=== PATIENT | female | born 1940 | race Caucasian/White ===

== ENCOUNTER → 2017-10-29 | Outpatient (CLI) | payer OTHER ==
[~2017-10-29] MED LIST: Amiodarone HCl200 MG PO; CALCIUM 500 +1 EAC2 PO; Coumadin3 MG PO; Estriol0.1 GM; FEXPSEER PO; FLONASE ALLERG9.9 ML NS; LISI5 PO; LMX 515 GM TP; MULVITMIND PO; OXYC5 PO; POTCHL20ER; SERT100 PO; Synthroid/Le0.075 MG PO
[2017-10-29 14:22] LABS: Candida species (DNA Probe) Negative (NEGATIVE); G. vaginalis (DNA Probe) Negative (NEGATIVE); T. vaginalis (DNA Probe) Negative (NEGATIVE)
== END ==
LOC: LAB SHORT 10:11 → LAB 10:11
PROVIDERS: Nurse Practitioner Obstetrics & Gynecology
DX: N76.0 Acute vaginitis (principal)
CPT/HCPCS: 87480; 87510; 87660

== ENCOUNTER 2018-03-18 08:46 | Day surgery (SDC) | payer OTHER ==
[~2018-03-18] VITALS: Ht 157.5 cm; Wt 58.5 kg
[~2018-03-18 08:46] MED LIST changes: +ASCO500 PO; +Aspirin EC81 MG PO; +DHEA 10 MG TAB1 EACH PO; +ESTRIOL VAG; +Vitamin C500 M3 PO
== END 2018-03-18 11:04 | disposition home or self-care (01) ==
LOC: ORSCSDS 08:46
PROVIDERS: Internal Medicine Gastroenterology
PROC: 0DJD8ZZ Inspection of Lower Intestinal Tract, Via Natural or Artificial Opening Endoscopic (ICD-10-PCS; principal; 2018-03-18 10:15)
DX: Z12.11 Encounter for screening for malignant neoplasm of colon (principal); K64.8 Other hemorrhoids; K57.30 Diverticulosis of large intestine without perforation or abscess without bleeding; I10 Essential (primary) hypertension; E78.5 Hyperlipidemia, unspecified; I34.1 Nonrheumatic mitral (valve) prolapse; Z79.899 Other long term (current) drug therapy; I48.91 Unspecified atrial fibrillation; Z79.82 Long term (current) use of aspirin
CPT/HCPCS: J0330; J1980; J2405; J7120

== ENCOUNTER → 2018-12-02 | Outpatient (CLI) | payer OTHER ==
[2018-12-02 15:00] LABS: Candida species (DNA Probe) Negative (NEGATIVE); G. vaginalis (DNA Probe) Negative (NEGATIVE); T. vaginalis (DNA Probe) Negative (NEGATIVE)
== END | disposition home or self-care (01) ==
LOC: LAB SHORT 09:49 → LAB 09:49
PROVIDERS: Nurse Practitioner Obstetrics & Gynecology
DX: N76.0 Acute vaginitis (principal)
CPT/HCPCS: 87480; 87510; 87660

== ENCOUNTER 2019-02-19 05:26 | Day surgery (SDC) | payer OTHER ==
[~2019-02-19] VITALS: Ht 157.5 cm; Wt 59.5 kg
[~2019-02-19 05:26] MED LIST changes: +ASCORBIC ACID500 MG PO; +Calcium Ascorb500 MG PO; +Daily Multiple1 EACH PO; +Estradiol0.5 MG VAG; +LIVALO1 MG PO; +METO25ER PO; +POTA10T PO; +TORSE20 PO
[2019-02-19] MEDS ORDERED: HYDCHL12.5 PO (09:24)
--- NOTE | 2019-02-19 11:04 | NUR ---
02/19/19 1104 Aleksey Bruce LATE ENTRY-[id number] PATIENT ARRIVED TO SDU VIA RECLINER CHAIR. PATIENT VERY DROWSY. DENIES PAIN, N/V AT THIS TIME. PATIENT ABLE TO MOVE UE WITHOUT DIFFICULTY. VSS
== END 2019-02-19 11:11 | disposition home or self-care (01) ==
LOC: ORSCSDS 05:26
PROVIDERS: Anesthesiology
PROC: 3E0R33Z Introduction of Anti-inflammatory into Spinal Canal, Percutaneous Approach (ICD-10-PCS; principal; 2019-02-19 10:00)
DX: M50.122 Cervical disc disorder at C5-C6 level with radiculopathy (principal); I10 Essential (primary) hypertension; F32.9 Major depressive disorder, single episode, unspecified; E78.00 Pure hypercholesterolemia, unspecified; Z79.82 Long term (current) use of aspirin; Z79.899 Other long term (current) drug therapy
CPT/HCPCS: J1040; J2250; J3010

== ENCOUNTER → 2019-06-08 | Outpatient (CLI) | payer OTHER ==
[~2019-06-08] MED LIST changes: +HYDCHL12.5 PO
== END | disposition home or self-care (01) ==
LOC: LAB SHORT 14:48 → LAB 14:48
DX: N39.0 Urinary tract infection, site not specified (principal)
CPT/HCPCS: 87086

== ENCOUNTER → 2019-10-27 | Outpatient (CLI) | payer OTHER | END | disposition home or self-care (01) | LOC: LAB 13:27 → LAB SHORT 13:27 → LAB FUT 10-26 12:40 | DX: N39.0 Urinary tract infection, site not specified (principal) | CPT/HCPCS: 87086 ==

== ENCOUNTER → 2019-11-12 | Outpatient (CLI) | payer OTHER ==
[2019-11-13 10:58] LABS: Candida species (DNA Probe) Negative (NEGATIVE); G. vaginalis (DNA Probe) Negative (NEGATIVE); T. vaginalis (DNA Probe) Negative (NEGATIVE)
== END | disposition home or self-care (01) ==
LOC: LAB 09:30 → LAB SHORT 09:30
PROVIDERS: Internal Medicine
DX: N89.9 Noninflammatory disorder of vagina, unspecified (principal)
CPT/HCPCS: 87480; 87510; 87660

== ENCOUNTER 2020-02-21 06:02 | Day surgery (SDC) | payer OTHER ==
[~2020-02-21] VITALS: Ht 157.5 cm; Wt 59.0 kg
[~2020-02-21 06:02] MED LIST changes: +ATOR80 PO; +CLOP75 PO; -Calcium Ascorb500 MG PO; +Cardizem CD 12120 MG PO; -Daily Multiple1 EACH PO; +HYDCHL25 PO; +LEVSOD75 PO; +MULTI VITAMIN1 EACH PO; +SERT50 PO; -Synthroid/Le0.075 MG PO
--- NOTE | 2020-02-21 08:24 | NUR ---
PT VERBALIZED UNDERSTANDING OF WRITTEN AND VERBAL D/C INST. IV REMOVED. PT ABLE TO DRINK WATER /S DIFFICULTY.
== END 2020-02-21 14:00 | disposition home or self-care (01) ==
LOC: MHTC 06:02
DX: I63.9 Cerebral infarction, unspecified (principal); I25.10 Atherosclerotic heart disease of native coronary artery without angina pectoris; Z95.4 Presence of other heart-valve replacement; I10 Essential (primary) hypertension; E78.5 Hyperlipidemia, unspecified; E03.9 Hypothyroidism, unspecified; Z79.02 Long term (current) use of antithrombotics/antiplatelets; Z79.899 Other long term (current) drug therapy; Z88.2 Allergy status to sulfonamides
CPT/HCPCS: 93312; 93325; J2704; J7030

== ENCOUNTER → 2020-02-29 | Outpatient (CLI) | payer OTHER | END | disposition home or self-care (01) | LOC: LAB SHORT 16:51 → LAB UCHC 16:51 | DX: R31.9 Hematuria, unspecified (principal) | CPT/HCPCS: 87077; 87086; 87186 ==

== ENCOUNTER → 2021-02-23 | Outpatient (CLI) | payer OTHER ==
[2021-02-23 14:40] LABS: Hematocrit 43.7 % (33.0-51.0); Hemoglobin 14.3 g/dL (11.5-16.0); Mean Corpuscular HGB Conc 32.7 g/dL (31.5-36.5); Mean Corpuscular Volume 86 fL (80-100); Mean Platelet Volume 10.1 fL (9.1-12.4); Platelet Count 275 K/mm3 (150-400); RDW Coefficient Variation 13.1 % (11.7-14.2); RDW Standard Deviation 40.6 fL (35.1-46.3); Red Blood Cell Count 5.11 M/mm3 (3.80-5.20); White Blood Cell Count 4.68 K/mm3 (4.00-11.30)
[2021-02-23 14:59] LABS: Magnesium, Blood 2.5 mg/dL (1.6-2.4)
[2021-02-23 15:04] LABS: Alanine Aminotransfer (ALT/SGP 37 U/L (12-78); Albumin/Globulin Ratio 1.2 (0.8-1.8); Alk Phos 59 U/L (50-136); Anion Gap 4 mmol/L (6-16); Aspartate Aminotrans (AST/SGOT 24 U/L (12-37); Bilirubin, Total 0.2 mg/dL (0.1-1.0); Blood Urea Nitrogen 15 mg/dL (8-24); Bun/Creatinine Ratio 20.4 (12.0-20.0); CHOL/HDL RATIO 2.7; CO2, Blood 30 mmol/L (21-32); Calcium, Blood 8.7 mg/dL (8.5-10.1); Chloride, Blood 103 mmol/L (98-108); Cholesterol 196 mg/dL (50-200); Creatinine, Blood 0.74 mg/dL (0.40-1.00); Globulin, Blood 3.3 g/dL (2.2-4.0); Glomerular Filtration Rate >60 (60-); Glucose, Blood 100 mg/dL (70-99); HDL Cholesterol 73 mg/dL (>39); LDL/HDL RATIO 1.3; Low Density Lipoprotein Chol 97 mg/dL (0-110); Sodium, Blood 137 mmol/L (136-145); Total Protein, Blood 7.3 g/dL (6.4-8.2); Triglycerides 129 mg/dL (30-160); Very Low Density Lipoprot Chol 25 mg/dL (6-32)
== END | disposition home or self-care (01) ==
LOC: LAB 09:50 → LAB SHORT 09:50
PROVIDERS: Student in an Organized Health Care Education/Training Program
DX: E78.5 Hyperlipidemia, unspecified (principal); R42 Dizziness and giddiness; R25.2 Cramp and spasm
CPT/HCPCS: 80053; 80061; 83735; 85027

== ENCOUNTER → 2021-07-26 | Outpatient (CLI) | payer OTHER | LOC: LAB SHORT 15:45 | DX: R30.0 Dysuria (principal) | CPT/HCPCS: 87086 ==

== ENCOUNTER → 2022-07-25 | Outpatient (CLI) | payer OTHER | END | disposition home or self-care (01) | LOC: PLD 11:39 → LAB SHORT 11:39 → LAB 11:39 | DX: L57.0 Actinic keratosis (principal) | CPT/HCPCS: 88305 ==

== ENCOUNTER 2022-11-14 12:58 | Inpatient (IN) | payer OTHER ==
[~2022-11-14] VITALS: Ht 157.5 cm; Wt 60.3 kg
[2022-11-14 13:36] LABS: BASOPHILS ABSOLUTE AUTO 0.08 K/mm3 (0.00-0.23); BASOPHILS PERCENT AUTO 1 % (0-2); EOSINOPHILS ABSOLUTE AUTO 0.15 K/mm3 (0.00-0.68); EOSINOPHILS PERCENT AUTO 2 % (0-6); Hematocrit 36.1 % (33.0-51.0); Hemoglobin 12.1 g/dL (11.5-16.0); IMMATURE GRAN ABSOLUTE AUTO 0.06 K/mm3 (0.00-0.10); IMMATURE GRAN PERCENT AUTO 1 % (0-1); LYMPHOCYTES ABSOLUTE AUTO 1.19 K/mm3 (0.84-5.20); LYMPHOCYTES PERCENT AUTO 15 % (21-46); MONOCYTES ABSOLUTE AUTO 0.89 K/mm3 (0.16-1.47); MONOCYTES PERCENT AUTO 11 % (4-13); Mean Corpuscular HGB 27.9 pg (26.0-34.0); Mean Corpuscular HGB Conc 33.5 g/dL (31.5-36.5); Mean Corpuscular Volume 83 fL (80-100); Mean Platelet Volume 10.9 fL (9.1-12.4); NEUTROPHILS ABSOLUTE AUTO 5.49 K/mm3 (1.96-9.15); NEUTROPHILS PERCENT AUTO 70 % (41-73); Platelet Count 278 K/mm3 (150-400); RDW Coefficient Variation 12.8 % (11.7-14.2); RDW Standard Deviation 38.9 fL (35.1-46.3); Red Blood Cell Count 4.34 M/mm3 (3.80-5.20); White Blood Cell Count 7.86 K/mm3 (4.00-11.30)
[2022-11-14 13:58] LABS: Albumin, Blood 3.1 g/dL (3.4-5.0); Albumin/Globulin Ratio 0.8 (0.8-1.8); Bilirubin, Total 0.3 mg/dL (0.1-1.0); Bun/Creatinine Ratio 21.7 (12.0-20.0); Calcium, Blood 9.1 mg/dL (8.5-10.1); Creatinine, Blood 0.74 mg/dL (0.40-1.00); Globulin, Blood 3.7 g/dL (2.2-4.0); Potassium, Blood 3.3 mmol/L (3.5-5.5); Total Protein, Blood 6.8 g/dL (6.4-8.2)
[2022-11-14 14:03] LABS: Influenza A, PCR NEGATIVE (NEGATIVE); Influenza B, PCR NEGATIVE (NEGATIVE); Resp Syncytial Virus, PCR NEGATIVE (NEGATIVE); SARS-Cov-2 (COVID-19) PCR, MMC NEGATIVE (NEGATIVE)
[2022-11-14] MEDS ORDERED: ATEN25 PO (14:57)
[2022-11-14] MEDS ORDERED: LIVALO4 MG PO (14:57)
[2022-11-14] MEDS ORDERED: WARF4 PO (15:14)
[2022-11-14 16:35] LABS: International Normalized Ratio 2.89; Prothrombin Time Results 28.6 Sec (9.7-11.5)
[2022-11-14 17:42] VITALS: BP 117/77
--- NOTE | 2022-11-14 18:46 | NUR ---
PATIENT ADMIT TO PCU AT 1740. ALERT AND ORIENTED. ABLE TO STAND AND TRANSFER IND. DENIES USING CANE/WALKER. IND AT HOME. PERRLA, WEARING GLASSES. BILATERAL HEARING AIDS. DENIES NUMBNESS/TINGLING. ON ROOM AIR SATING ABOVE 95%. LUNGS SOUNDING CLEAR WITH DIMINISHED BASES. DENIES SOB/COUGH. TELE SHOWING SR WITH HR 70'S. BP STABLE. DENIES CHEST PAIN/PRESSURE/PALPITATIONS. NO EDEMA NOTED. DENIES ABDOMINAL PAIN/NAUSEA. EATING WNL. SKIN C/D/I. NO OPEN WOUNDS OR SORES. CALL PLACED TO DR. BARRY. THIS RN DISCUSSED CARDIAC PLAN AND TRENDING TROPONINS AND ANTICOAGULATION. DR. BARRY TO PLACE ORDERS. DR. BARRY SPOKE WITH CARDIOLOGY CONSULT ORDERS IN PLACE. PLAN FOR POSSIBLE ANGIO TOMORROW. NPO AT MIDNIGHT. PATIENT AND FAMILY UPDATED. PATIENT NOT TOLERATING IV POTASSIUM, THIS RN ATTEMPTED TO DILUATED MULTIPLE TIMES WITH NS. PATIENT HAVING ANXIETY WITH IV POTASSIUM AND THE DISCOMFORT IT IS CAUSING. PATIENT NOT ABLE TO SIT STILL IN BED. DR. BARRY CALLED TO DISCUSS IV POTASSIUM. NO NEW ORDERS. WILL CONTINUE TO ATTEMPT IV POTASSIUM WHEN PATIENT IS FINISHED EATING DINNER.
[2022-11-14 19:59] VITALS: BP 101/77
[2022-11-14 22:16] LABS: Creatine Kinase MB 3.3 ng/mL (0.0-3.6); Creatine Kinase MB Index 1.8 (0.0-4.0)
[2022-11-15] VITALS (11 sets, daily range): BP systolic 84–183; BP diastolic 49–89
--- NOTE | 2022-11-15 05:53 | NUR ---
SHIFT SUMMARY ASSUMED CARE OF PT AT 1900. PT IS A/OX4. HEART SOUNDS REGULAR, LUNG SOUNDS HAVE FINE CRACKLES AT THE BASES. PT HAS NO NEW COMPLAINTS. PT WAS NOT ABLE TO TOLERATE IV POTASSIUM, HOSPITALIST NOTIFIED AND PT GIVEN PO. PT HAD SOFT BP T/O THE NOC. PT STATES THAT SHE FEELS FINE AND IS ASYMPTOMATIC.
--- NOTE | 2022-11-15 05:55 | NUR ---
MORNING MEDICATIONS PT REFUSED MORNING THYROID PILL STATING SHE TAKES IT WITH FOOD AND HOME. PT EDUCATED ABOUT MEDICATION AND ADMINISTRATION AND SHE SAID IT HAS BEEN FINE SO FAR AND SHE WOULD RATHER TAKE IT WITH HER OTHER PILLS WITH BREAKFAST.
[2022-11-15 05:59] LABS: Hematocrit 34.5 % (33.0-51.0); Hemoglobin 11.5 g/dL (11.5-16.0); Mean Corpuscular HGB 27.8 pg (26.0-34.0); Mean Corpuscular HGB Conc 33.3 g/dL (31.5-36.5); Mean Corpuscular Volume 83 fL (80-100); Mean Platelet Volume 10.6 fL (9.1-12.4); Platelet Count 236 K/mm3 (150-400); RDW Coefficient Variation 12.8 % (11.7-14.2); RDW Standard Deviation 38.9 fL (35.1-46.3); Red Blood Cell Count 4.14 M/mm3 (3.80-5.20); White Blood Cell Count 6.66 K/mm3 (4.00-11.30)
[2022-11-15 06:18] LABS: Alanine Aminotransfer (ALT/SGP 38 U/L (12-78); Albumin, Blood 2.8 g/dL (3.4-5.0); Albumin/Globulin Ratio 0.8 (0.8-1.8); Alk Phos 55 U/L (50-136); Anion Gap 5 mmol/L (6-16); Aspartate Aminotrans (AST/SGOT 43 U/L (12-37); Bilirubin, Total 0.3 mg/dL (0.1-1.0); Blood Urea Nitrogen 15 mg/dL (8-24); Bun/Creatinine Ratio 20.3 (12.0-20.0); CHOL/HDL RATIO 2.5; CO2, Blood 27 mmol/L (21-32); CPK Creatine Kinase 172 U/L (26-193); Calcium, Blood 8.7 mg/dL (8.5-10.1); Chloride, Blood 103 mmol/L (98-108); Cholesterol 132 mg/dL (50-200); Creatine Kinase MB 2.9 ng/mL (0.0-3.6); Creatine Kinase MB Index 1.7 (0.0-4.0); Creatinine, Blood 0.74 mg/dL (0.40-1.00); Globulin, Blood 3.4 g/dL (2.2-4.0); Glomerular Filtration Rate 81 (60-); Glucose, Blood 97 mg/dL (70-99); HDL Cholesterol 53 mg/dL (>39); Low Density Lipoprotein Chol 54 mg/dL (0-110); Magnesium, Blood 2.4 mg/dL (1.6-2.4); Phosphorus, Blood 3.4 mg/dL (2.5-4.9); Sodium, Blood 135 mmol/L (136-145); Total Protein, Blood 6.2 g/dL (6.4-8.2); Triglycerides 123 mg/dL (30-160); Very Low Density Lipoprot Chol 24 mg/dL (6-32)
--- NOTE | 2022-11-15 17:05 | NUR ---
SHIFT SUMMARY PT A/O X4. PLEASANT AND COOPERATIVE. PT ASYMPTOMATIC. SHE DENIES CHEST PAIN OR SOB. VSS. SR IN 70-80'S ON TELE. SPO2 >92% ON RA. LUNGS CLEAR THROUGHOUT. RESPIRATIONS EVEN AND UNLABORED. PT AMBULATING FREQUENTLY IN ROOM AND HALLWAY TODAY AND TOLERATING WELL. MULTIPLE VISITORS IN AND OUT THROUGHOUT THE DAY. DR CUEVA MET WITH PT TODAY AND EXPLAINED THAT THE PLAN IS TO DO AN ANGIOGRAM ONCE INR LEVEL IS STABLE. ANGIO WILL LIKELY BE COMPLETED FRIDAY. ECHO WAS COMPLETED TODAY. OVERALL, AN UNEVENTFUL SHIFT. WILL CONTINUE TO CARE FOR PT AND REPORT TO ONCOMING RN.
[2022-11-16] VITALS (7 sets, daily range): BP systolic 82–105; BP diastolic 51–68
[2022-11-16 04:27] LABS: International Normalized Ratio 2.46; Prothrombin Time Results 24.5 Sec (9.7-11.5)
--- NOTE | 2022-11-16 05:58 | NUR ---
SHIFT SUMMARY ASSUMED CARE OF PT AT 1900. PT IS A/OX4. HEART SOUNDS REGULAR. LUNG SOUNDS DIMINSHED WITH FINE CRACKLES AT BASELINE. PT WAS INDEPENDENT IN ROOM. NO FURTHER COMPLAINTS OTHER THAN WONDERING IF SHE WILL GET AN ANGIO OR NOT.
--- NOTE | 2022-11-16 18:13 | NUR ---
End of shift note. Pt has had a good day. Pt walked around the unit multiple times, lots of visitors. Vitals stable, expect soft BP this afternoon. MD aware. Evening coreg held. Good output from IV Lasix. Standing weight was placed in chart. Tele noted QTc increasing, MD notified. Pt is pleasant and cooperative with care. Able to make needs known, call light is within reach.
[2022-11-17] VITALS (7 sets, daily range): BP systolic 86–127; BP diastolic 57–86
[2022-11-17 04:25] LABS: Hematocrit 35.8 % (33.0-51.0); Mean Corpuscular HGB 28.1 pg (26.0-34.0); Mean Corpuscular HGB Conc 33.5 g/dL (31.5-36.5); Mean Corpuscular Volume 84 fL (80-100); Mean Platelet Volume 10.5 fL (9.1-12.4); Platelet Count 291 K/mm3 (150-400); Red Blood Cell Count 4.27 M/mm3 (3.80-5.20); White Blood Cell Count 5.35 K/mm3 (4.00-11.30)
[2022-11-17 04:38] LABS: International Normalized Ratio 1.57; Prothrombin Time Results 16.1 Sec (9.7-11.5)
[2022-11-17 04:54] LABS: Albumin, Blood 2.6 g/dL (3.4-5.0); Albumin/Globulin Ratio 0.8 (0.8-1.8); Bilirubin, Total 0.4 mg/dL (0.1-1.0); Bun/Creatinine Ratio 19.3 (12.0-20.0); Calcium, Blood 8.5 mg/dL (8.5-10.1); Creatinine, Blood 0.78 mg/dL (0.40-1.00); Globulin, Blood 3.2 g/dL (2.2-4.0); Potassium, Blood 4.2 mmol/L (3.5-5.5); Total Protein, Blood 5.8 g/dL (6.4-8.2)
--- NOTE | 2022-11-17 05:52 | NUR ---
SHIFT SUMMARY ASSUMED CARE OF PT AT 1900. PT IS A/OX4. HEART SOUNDS REGULAR. LUNG SOUNDS CLEAR. PT INDEPENDENT IN ROOM. PT SLEPT T/O THE NOC. NO ACUTE CHANGES. PT HAD LOW BP THIS AM. PT REMAINED NPO SINCE MIDNIGHT.
[2022-11-17 10:03] LABS: Anti-Xa UFH, PHA Monitoring <0.10 IU/mL
--- NOTE | 2022-11-17 10:20 | NUR ---
UPDATE SPOKE WITH DR. LUTZ REGARDING PT. PLAN FOR ANGIO TOMORROW AM. PT TO BE NPO AT MIDNIGHT. PER HOSPITALIST PLAN FOR HEPARIN GTT. ORDERS PLACED.
--- NOTE | 2022-11-17 17:31 | NUR ---
SHIFT SUMMARY PT ALERT AND ORIENTED X 4. HR STABLE. BP STABLE. NO CP OR PRESSURE REPORTED. PT ON HEPARIN GTT SEE EMAR FOR RATE. OXYGEN SATURATION MAINTAINED ABOVE 95% ON RA. PT IND IN ROOM. CONSENT FOR ANGIO IN AM SIGNED BY DR. LUTZ AND PT, IN FRONT OF CHART. PT TO BE NPO AT MIDNIGHT FOR PROCEDURE. CALL LIGHT WITHIN REACH. WILL CONT TO MONITOR UNTIL REPORT GIVEN TO DAYSHIFT RN.
[2022-11-18] VITALS (16 sets, daily range): BP systolic 79–130; BP diastolic 46–101
[2022-11-18 04:43] LABS: Hemoglobin 12.5 g/dL (11.5-16.0); Mean Corpuscular HGB 27.9 pg (26.0-34.0); Mean Corpuscular HGB Conc 32.9 g/dL (31.5-36.5); Mean Corpuscular Volume 85 fL (80-100); Mean Platelet Volume 10.4 fL (9.1-12.4); Platelet Count 331 K/mm3 (150-400); RDW Coefficient Variation 12.9 % (11.7-14.2); RDW Standard Deviation 39.6 fL (35.1-46.3); Red Blood Cell Count 4.48 M/mm3 (3.80-5.20); White Blood Cell Count 7.01 K/mm3 (4.00-11.30)
[2022-11-18 05:03] LABS: Albumin, Blood 2.9 g/dL (3.4-5.0); Anion Gap 5 mmol/L (6-16); Blood Urea Nitrogen 15 mg/dL (8-24); Bun/Creatinine Ratio 21.3 (12.0-20.0); CO2, Blood 27 mmol/L (21-32); Calcium, Blood 8.6 mg/dL (8.5-10.1); Chloride, Blood 108 mmol/L (98-108); Creatinine, Blood 0.71 mg/dL (0.40-1.00); Glomerular Filtration Rate 85 (60-); Glucose, Blood 104 mg/dL (70-99); International Normalized Ratio 1.18; Potassium, Blood 4.2 mmol/L (3.5-5.5); Prothrombin Time Results 12.3 Sec (9.7-11.5); Sodium, Blood 140 mmol/L (136-145)
--- NOTE | 2022-11-18 05:59 | NUR ---
SHIFT SUMMARY PT REMAINS A&O X4. PLEASANT AND COOPERATIVE WITH CARE. VSS; ALTHOUGH BP STILL SOFT, MAP >60. PT ASYMPTOMATIC W/SOFT BP. HEART RHYTHM SR W/HR IN 80 - 90'S. PT CONTINUES TO BE ON RA W/NO DECREASE IN SPO2; MAINTAINED >95%. PT DENIES SOB, CP OR PRESSURE. DENIES N/V, OR DIZZINESS. PT UP TO RESTROOM INDEPENDENTLY, PT AMBULATING IN ROOM AND HALLWAYS INDEPENDENTLY W/NO ISSUES. NO ACUTE CHANGES THROUGH THIS SHIFT. PT NPO SINCE 0000 FOR ANGIO THIS AM. EDUCATION PROVIDED ABOUT PROCEDURE, PT ASKING QUESTIONS AND RECEPTIVE TO EDUCATION. HEPARIN INFUSING PER EMAR. PT RESTED WELL THROUGHOUT THE SHIFT AND IS CURRENTLY ASLEEP. CALL LIGHT IN REACH, WILL UPDATE ONCOMING AM RN.
--- NOTE | 2022-11-18 12:58 | NUR ---
Patient is sitting on a chair and alert. Patient immediately states that she is waiting for an agiogram and that she has been waiting since for one to be performed. She then talks about how stressful the waiting and the unknowns are for her. We talk about ways to lessen the impact of these challenging circumstances, the importance of our triage practices and the positives of being where she is, with the high level talent and expertise of the personal surrounding her. We also talks about her strong [employer] ulises, her attendance at [facility], and the strength and support she feels. SHe also shares about her strong and loving family that are supporting her during these times. I listen empathically, reinforce helpful attitudes and practices and provide anxiety containment, gentle counseling services manager and prayer. Patient responded well and showed signs of being encouraged in her ulises and greater peace in the moment as she waits.
--- NOTE | 2022-11-18 18:35 | NUR ---
SHIFT SUMMARY: PT A&Ox4, COOPERATIVE W/CARE, ABLE TO MAKE NEEDS KNOWN. O2 SATS >93% ON RA, PT DENIES SOB. SR ON MONITOR, RATE 80s, PT DENIES CP. PT TO LAWN MOWER REPAIRER THIS AFTERNOON, RETURNS APPROX 1725 TO ROOM, SEE LAWN MOWER REPAIRER NOTES RE: PROCEDURE. TR BAND IN PLACE TO R RADIAL, SITE SOFT NONTENDER W/NO SIGNS OF HEMATOMA, NO AIR HAS BEEN DEFLATED YET, RECOVERY VITALS IN PROGRESS. EDUCATION PROVIDED RE: RECOVERY PROCESS, MEDICATIONS, AND POTENTIAL PLAN OF CARE. PT AND FAMILY V/U. AT THIS TIME, PT RESTING WITH FAMILY AT BEDSIDE. WILL CONTINUE TO MONITOR AND TREAT ACCORDINGLY UNTIL CHANGE OF SHIFT.
--- NOTE | 2022-11-18 22:22 | NUR ---
UPDATE PT BP SOFT; TRENDING DOWN; SEE VITALS. MAPS 64-67. PT HAD ANGIO TODAY, SITE WNL, TR BAND STILL BEING RECOVERED W/OUT HEMATOMA, TENDERNESS, OR OUT OF PROPORTION PAIN. PT HAND IS COOL TO THE TOUCH, BUT IS IMPROVING SOME. PT INITIALLY REPORTED "TINGLING IN HAND". THIS WAS AT START OF SHIFT AND UPON RETURNING FROM PRODUCT SAFETY AND STANDARDS ENGINEER PER REPORT. PT HAS REPORTED THIS IS IMPROVING, SHE CAN FEEL PRESSURE AND TOUCH. EXTREMITY NORMAL IN COLOR. PT DENIES ANY SX FROM SOFT BP, PT IS STILL AMBULATING TO BATHROOM INDENPENDENTLY; DENIES DIZZINESS OR LIGHTHEADNESS THIS RN NOTIFIED RESIDENT OF BP'S; NO NEW ORDERS. ONLY RN TO NOTIFY RESIDENT IF SBP <110 AND MAP <65. WILL CONTINUE TO MONITOR SITE AND BP.
[2022-11-19] VITALS (12 sets, daily range): BP systolic 79–128; BP diastolic 51–99
--- NOTE | 2022-11-19 03:10 | NUR ---
UPDATE PT BLOOD PRESSURE STILL HAS NOT IMPROVED, THIS RN NOTIFIED RESIDENT AND HOSPITALIST. NEW ORDERS FOR 10 MG OF MIDODRINE PO X1 NOW. THEN TO RECHECK BP. UPON RECHECK, BP HAD NO IMPROVED. THIS RN NOTIFIED RESIDENT. NEW ORDERS FOR ANOTHER 10 MG OF MIDODRINE PO TID. ANOTHER 10 MG ADMINISTERED. PT BP CONTINUING TO BE SOFT AND TREND DOWN A LITTLE; SEE VITAL SIGNS. THIS RN CALLED HOSPITALIST. NEW ORDERS FOR 250 CC BOLUS OF NS AND CBC DRAW W/ H/H.NS BOLUS ADMINISTERD, WILL REASSESS BP AND NOTIFY PROVIDER OF RESULTS. LAB IN TO DRAW CBC; AWAITING RESULTS.
[2022-11-19 03:19] LABS: Hematocrit 33.7 % (33.0-51.0); Hemoglobin 11.1 g/dL (11.5-16.0); Mean Corpuscular HGB 28.1 pg (26.0-34.0); Mean Corpuscular HGB Conc 32.9 g/dL (31.5-36.5); Mean Corpuscular Volume 85 fL (80-100); Mean Platelet Volume 10.2 fL (9.1-12.4); Platelet Count 327 K/mm3 (150-400); RDW Coefficient Variation 12.9 % (11.7-14.2); RDW Standard Deviation 40.1 fL (35.1-46.3); Red Blood Cell Count 3.95 M/mm3 (3.80-5.20); White Blood Cell Count 6.78 K/mm3 (4.00-11.30)
--- NOTE | 2022-11-19 03:28 | NUR ---
UPDATE NS BOLUS COMPLETED. RECHECK OF BLOOD PRESSURE DID SHOW IMPROVEMENT; 90/56 WITH MAP OF 69. CBC RESULTS; HGB 11.1. OPERATIONS INTERN NOTIFIED.
[2022-11-19 03:39] LABS: Albumin, Blood 2.6 g/dL (3.4-5.0); Albumin/Globulin Ratio 0.8 (0.8-1.8); Bilirubin, Total 0.3 mg/dL (0.1-1.0); Bun/Creatinine Ratio 16.7 (12.0-20.0); Calcium, Blood 8.1 mg/dL (8.5-10.1); Creatinine, Blood 0.84 mg/dL (0.40-1.00); Globulin, Blood 3.1 g/dL (2.2-4.0); Potassium, Blood 4.3 mmol/L (3.5-5.5); Total Protein, Blood 5.7 g/dL (6.4-8.2)
--- NOTE | 2022-11-19 05:32 | NUR ---
SHIFT SUMMARY PT REMAINS A&O X4. PT HAD SEVERAL SOFT BP; SEE VITALS. PROVIDER NOTIFIED; SEE PREVIOUS NURSING NOTES. PT BP HAS SINCE IMPROVED; SBP NOW 90 - 96, MAP >65. TR BAND FULLY RECOVERED; R RADIAL SITE WNL; NO HEMATOMA, TENDERNESS/PAIN, PT REPORT "TINGLING" HAS RESOLVED, DENIES NUMBNESS. GOOD CAP REFILL. SLIGHT BRUISING NOTED ABOVE SITE. TEGADERM PLACED AND ARMBOARD IN PLACE. PT ASYMPTOMATIC WITH SOFT BP'S AND DENIES ANY DIZZINESS OR LIGHTHEADNESS. PT STILL UP AMBULATING IN ROOM AND TO RESTROOM INDEPENDENTLY W/NO ISSUES. PT RESTED ON AND OFF THROUGHOUT NIGHT. CALL LIGHT IN REACH. WILL UPDATE ONCOMING RN.
[2022-11-19 09:23] LABS: International Normalized Ratio 1.15
--- NOTE | 2022-11-19 16:58 | NUR ---
SHIFT SUMMARY PT IS A&O X4. VSS. SPO2 >92% ON RA. SINUS RHYTHM 80'S-90'S. PT DENIES ANY CP OR SOB. HEPARIN GTT INFUSING @ 14 U/KG/HR. R RADIAL SITE WNL. ARMBOARD IN PLACE. PT WITH NO OTHER COMPLAINTS AT THIS TIME. PT SITTING IN RECLINER WITH CALL LIGHT IN REACH.
[2022-11-20 02:19] LABS: Hematocrit 32.8 % (33.0-51.0); Hemoglobin 11.1 g/dL (11.5-16.0); Mean Corpuscular HGB 28.3 pg (26.0-34.0); Mean Corpuscular HGB Conc 33.8 g/dL (31.5-36.5); Mean Corpuscular Volume 84 fL (80-100); Platelet Count 309 K/mm3 (150-400); RDW Coefficient Variation 13.2 % (11.7-14.2); RDW Standard Deviation 39.7 fL (35.1-46.3); Red Blood Cell Count 3.92 M/mm3 (3.80-5.20); White Blood Cell Count 6.69 K/mm3 (4.00-11.30)
[2022-11-20 02:42] LABS: Albumin, Blood 2.7 g/dL (3.4-5.0); Albumin/Globulin Ratio 0.9 (0.8-1.8); Bilirubin, Total 0.2 mg/dL (0.1-1.0); Bun/Creatinine Ratio 20.9 (12.0-20.0); Calcium, Blood 8.5 mg/dL (8.5-10.1); Creatinine, Blood 0.72 mg/dL (0.40-1.00); Globulin, Blood 2.9 g/dL (2.2-4.0); Potassium, Blood 4.3 mmol/L (3.5-5.5); Total Protein, Blood 5.6 g/dL (6.4-8.2)
[2022-11-20 02:50] LABS: International Normalized Ratio 1.1; Prothrombin Time Results 11.5 Sec (9.7-11.5)
[2022-11-20 03:29] VITALS: BP 104/62
--- NOTE | 2022-11-20 04:32 | NUR ---
SHIFT SUMMARY PT IS A/Ox4 AND COOPERATIVE WITH CARE PROVIDED BY MEMBERS OF STAFF. ANSWERS QUESTIONS APPROPRIATELY AND ABLE TO MAKE HER NEED KNOWN. NO ACUTE EVENTS OVERNIGHT FOR PT WAS ABLE TO SLEEP T/O MOST OF THE SHIFT. CARDIAC MICHAEL, REMAINS IN SR 70-90'S WITH NO C/O CP OR PRESSURE DURING THE NIGHT. SBP HAS BEEN STABLE WELL. RESPIRATORY, MAINTAINS SPO2 >94% ON RA WITH NO SOB NOTED. PT IS CONTINENT AND IS ABLE TO IND. WALK TO THE BATHROOM TO VOID. HEPARIN HAS BEEN INFUSING T/O THE NIGHT ORDERED VIA EMAR WITH NO NEED FOR RATE CHANGE PER PHARMACY. PT PENDING DC ONCE INR IS WITHIN DESIRABLE RANGE PER DR. GONZALEZ'S NOTE. NO NEW ORDERS AT THIS TIME, WILL REPORT TO ONCOMING RN. TA CANELA T/O THE SHIFT.
[2022-11-20 07:16] VITALS: BP 105/66
[2022-11-20] MEDS ORDERED: ASPI81CH PO (12:31)
[2022-11-20] MEDS ORDERED: CARV3.125 PO (12:31)
[2022-11-20] MEDS ORDERED: Lisinopril2.5 MG PO (12:33)
[2022-11-20] MEDS ORDERED: CLOP75 PO (12:33)
[2022-11-20] MEDS ORDERED: ENOX60I SC (12:34)
[2022-11-20] MEDS ORDERED: MIDODRINE HCL10 M2 PO (12:34)
[2022-11-20] MEDS ORDERED: FAMO40 PO (12:35)
[2022-11-20 13:12] VITALS: BP 107/72
[2022-11-20 15:22] VITALS: BP 102/66
[2022-11-20 15:35] LABS: International Normalized Ratio 1.25
[2022-11-20 17:48] VITALS: BP 117/72
[2022-11-20 18:47] VITALS: BP 104/90
--- NOTE | 2022-11-20 19:28 | NUR ---
DISCHARGE HOME PT A&O X4. VSS. SPO2 > 92% ON RA. MONITOR SHOWING NSR. PT INDEPENDENT IN RM. R RADIAL ACCESS SITE WNL. TRANSPARENT DRESSING C/D/I. HEPARIN GTT INFUSING UNTIL THIS EVENING. PT EDUCATED ON HOW TO SELF ADMINISTER SC LOVENOX INJECTIONS D/T PT DISCHARGING HOME W/ LOVENOX. PT RECEPTIVE TO EDUCATION & ABLE TO SATISFACTORLY GIVE SELF INJECTION THIS EVENING. DISCHARGE INSTRUCTIONS REVIEWED W/ PT & SENT HOME W/ PT. PIV REMOVED. PT TAKEN OUT BY WHEELCHAIR W/ RAZ @ APPROX 1900.
== END 2022-11-20 19:32 | disposition home or self-care (01) | DRG 246 ==
LOC: ER 12:58 → PCU 15:39
PROVIDERS: Emergency Medicine; Internal Medicine; Internal Medicine Cardiovascular Disease; Student in an Organized Health Care Education/Training Program; ADMIT Internal Medicine
PROC: 027034Z Dilation of Coronary Artery, One Artery with Drug-eluting Intraluminal Device, Percutaneous Approach (ICD-10-PCS; principal; 2022-11-18)
PROC: 4A023N7 Measurement of Cardiac Sampling and Pressure, Left Heart, Percutaneous Approach (ICD-10-PCS; 2022-11-18)
PROC: B2111ZZ Fluoroscopy of Multiple Coronary Arteries using Low Osmolar Contrast (ICD-10-PCS; 2022-11-18)
PROC: B240ZZ3 Ultrasonography of Single Coronary Artery, Intravascular (ICD-10-PCS; 2022-11-18)
DX: I21.4 Non-ST elevation (NSTEMI) myocardial infarction (principal); I50.43 Acute on chronic combined systolic (congestive) and diastolic (congestive) heart failure; I42.0 Dilated cardiomyopathy; I11.0 Hypertensive heart disease with heart failure; I25.5 Ischemic cardiomyopathy; E03.9 Hypothyroidism, unspecified; F32.A Depression, unspecified; I48.0 Paroxysmal atrial fibrillation; I25.10 Atherosclerotic heart disease of native coronary artery without angina pectoris; E78.5 Hyperlipidemia, unspecified; G47.33 Obstructive sleep apnea (adult) (pediatric); F41.1 Generalized anxiety disorder; M51.9 Unspecified thoracic, thoracolumbar and lumbosacral intervertebral disc disorder; H81.09 Meniere's disease, unspecified ear; E87.6 Hypokalemia; R74.01 Elevation of levels of liver transaminase levels; Z20.822 Contact with and (suspected) exposure to COVID-19; Z95.2 Presence of prosthetic heart valve; Z98.890 Other specified postprocedural states; Z98.42 Cataract extraction status, left eye; Z98.41 Cataract extraction status, right eye; Z88.2 Allergy status to sulfonamides; Z79.01 Long term (current) use of anticoagulants; Z86.79 Personal history of other diseases of the circulatory system; Z79.899 Other long term (current) drug therapy; Z88.1 Allergy status to other antibiotic agents; Z86.73 Personal history of transient ischemic attack (TIA), and cerebral infarction without residual deficits
CPT/HCPCS: 0241U; 36415; 71046; 76937; 80053; 80061; 80069; 82550; 82553; 83036; 83090; 83735; 83880; 84100; 84484; 85025; 85027; 85347; 85520; 85610; 85730; 92978; 93005; 93010; 93306; 93454; 99152; 99153; 99285-25; A9270; C1725; C1753; C1769; C1874; C1887; C1894; C9113; C9600; J1644; J1650; J1940; J2250; J2405; J3010; J3480; J7030; J7050; Q9967

== ENCOUNTER 2023-01-03 20:51 | Inpatient (IN) | payer OTHER ==
[~2023-01-03] VITALS: Ht 157.5 cm; Wt 58.7 kg
[~2023-01-03 20:51] MED LIST changes: +ASPI81CH PO; +ATEN25 PO; +CARV3.125 PO; +ENOX60I SC; +FAMO40 PO; +LIVALO4 MG PO; +Lisinopril2.5 MG PO; +MIDODRINE HCL10 M2 PO; +WARF4 PO
[2023-01-03 21:33] LABS: BASOPHILS ABSOLUTE AUTO 0.11 K/mm3 (0.00-0.23); BASOPHILS PERCENT AUTO 2 % (0-2); EOSINOPHILS ABSOLUTE AUTO 0.61 K/mm3 (0.00-0.68); EOSINOPHILS PERCENT AUTO 9 % (0-6); Hematocrit 38.8 % (33.0-51.0); Hemoglobin 12.9 g/dL (11.5-16.0); IMMATURE GRAN ABSOLUTE AUTO 0.02 K/mm3 (0.00-0.10); IMMATURE GRAN PERCENT AUTO 0 % (0-1); LYMPHOCYTES ABSOLUTE AUTO 1.57 K/mm3 (0.84-5.20); LYMPHOCYTES PERCENT AUTO 24 % (21-46); MONOCYTES ABSOLUTE AUTO 0.75 K/mm3 (0.16-1.47); MONOCYTES PERCENT AUTO 12 % (4-13); Mean Corpuscular HGB 27.9 pg (26.0-34.0); Mean Corpuscular HGB Conc 33.2 g/dL (31.5-36.5); Mean Corpuscular Volume 84 fL (80-100); Mean Platelet Volume 10.3 fL (9.1-12.4); NEUTROPHILS PERCENT AUTO 53 % (41-73); Platelet Count 273 K/mm3 (150-400); RDW Coefficient Variation 13.9 % (11.7-14.2); RDW Standard Deviation 42.7 fL (35.1-46.3); Red Blood Cell Count 4.62 M/mm3 (3.80-5.20); White Blood Cell Count 6.46 K/mm3 (4.00-11.30)
[2023-01-03 21:54] LABS: Albumin, Blood 3.4 g/dL (3.4-5.0); Albumin/Globulin Ratio 1.2 (0.8-1.8); Bilirubin, Total 0.3 mg/dL (0.1-1.0); Bun/Creatinine Ratio 19.6 (12.0-20.0); Calcium, Blood 8.7 mg/dL (8.5-10.1); Creatinine, Blood 1.02 mg/dL (0.40-1.00); Globulin, Blood 2.9 g/dL (2.2-4.0); Potassium, Blood 4.2 mmol/L (3.5-5.5); Total Protein, Blood 6.3 g/dL (6.4-8.2)
[2023-01-04] VITALS (10 sets, daily range): BP systolic 97–139; BP diastolic 70–96
[2023-01-04 00:40] LABS: International Normalized Ratio 3.77; Prothrombin Time Results 36.7 Sec (9.7-11.5)
[2023-01-04 05:16] LABS: BASOPHILS ABSOLUTE AUTO 0.08 K/mm3 (0.00-0.23); BASOPHILS PERCENT AUTO 1 % (0-2); EOSINOPHILS PERCENT AUTO 7 % (0-6); Hematocrit 38.3 % (33.0-51.0); Hemoglobin 12.7 g/dL (11.5-16.0); IMMATURE GRAN ABSOLUTE AUTO 0.02 K/mm3 (0.00-0.10); IMMATURE GRAN PERCENT AUTO 0 % (0-1); LYMPHOCYTES ABSOLUTE AUTO 1.26 K/mm3 (0.84-5.20); LYMPHOCYTES PERCENT AUTO 21 % (21-46); MONOCYTES PERCENT AUTO 12 % (4-13); Mean Corpuscular HGB 27.7 pg (26.0-34.0); Mean Corpuscular HGB Conc 33.2 g/dL (31.5-36.5); Mean Corpuscular Volume 83 fL (80-100); Mean Platelet Volume 10.7 fL (9.1-12.4); NEUTROPHILS ABSOLUTE AUTO 3.46 K/mm3 (1.96-9.15); NEUTROPHILS PERCENT AUTO 58 % (41-73); Platelet Count 233 K/mm3 (150-400); RDW Coefficient Variation 13.9 % (11.7-14.2); RDW Standard Deviation 42.5 fL (35.1-46.3); Red Blood Cell Count 4.59 M/mm3 (3.80-5.20); White Blood Cell Count 5.92 K/mm3 (4.00-11.30)
[2023-01-04 05:31] LABS: Albumin, Blood 3.3 g/dL (3.4-5.0); Albumin/Globulin Ratio 1.2 (0.8-1.8); Bilirubin, Total 0.6 mg/dL (0.1-1.0); Bun/Creatinine Ratio 20.5 (12.0-20.0); Calcium, Blood 8.3 mg/dL (8.5-10.1); Creatinine, Blood 0.73 mg/dL (0.40-1.00); Globulin, Blood 2.7 g/dL (2.2-4.0); Potassium, Blood 3.7 mmol/L (3.5-5.5)
--- NOTE | 2023-01-04 07:06 | NUR ---
ASSUMED PT CARE FORM RN IN ER. PT ABLE TO AMBULATE TO BED FROM [facility] WITH STEADY GAIT, POSTURE ERECT. HR INCREASED TO 140'S WHEN UP, SUBSIDES TO 100-110S WHEN AT REST. DENIES DIZZIENSS, SOB, OR CHEST PAIN AT THIS TIME. O2 SATS > 92% ON RA. VOIDING CLEAR, YELLOW URINE WITHOUT DIFFICULTY. ORIENTED TO ROOM AND CALL LIGHT.
--- NOTE | 2023-01-04 08:43 | NUR ---
AM NOTE: PATIENT ALERT AND ORIENTED. VERY TALKATIVE AND ENERGETIC. PERRLA, WEARING GLASSES. DENIES NUMBNESS/TINGLING. UP WITH SBA. ON ROOM AIR SATING ABOVE 95%. DENIES COUGH. AT TIMES FEELING SOB WHEN HR IS ELEVATED. TELE SHOWING AFIB WITH HR 100-140'S. BP ON SOFTER SIDE. HR 100-110'S AT REST. PATIENT DENIES CHEST PAIN/PRESSURE. AT TIMES FEELS HEART "RACING". PPP. NO EDEMA. PLAN FOR CARDIOLOGY CONSULT THIS AM. DENIES ABDOMINAL PAIN/NAUSEA. NPO ORDERS IN PLACE. VOIDING WNL. PATIENT EDUCATED ON FIRE SAFETY AND IGNITION RISK. PATIENT DENIES HAVING ANY IGNITION SOURCE DEVICES. CALL LIGHT IN REACH.
--- NOTE | 2023-01-04 10:43 | NUR ---
HR SUSTAINING ABOVE 120. IV METOPROLOL GIVEN PER EMAR. PATIENT CONVERTED TO SR 70-80'S. BP REMAINS STABLE. DR. CUEVA TO BEDSIDE AND UPDATED ON SR CONVERSION. DR. CUEVA TO PLACE NEW ORDERS.
--- NOTE | 2023-01-04 12:59 | NUR ---
ECHO BEING DONE AT THIS TIME
--- NOTE | 2023-01-04 17:51 | NUR ---
SHIFT SUMMARY: NO ACUTE CHANGES. PATIENT HAS REMAINED SR WITH HR 80-90'S. BP STABLE. ECHO COMPLETED AND DR. CUEVA BY TO SEE PATIENT THIS EVENING. NEW ORDERS FOR ENTRESTO. FAMILY AT BEDSIDE THIS EVENING. REMAINS ON ROOM AIR. SHOWER. UP TO BATHROOM, VOIDING WELL. VITAL SIGNS STABLE. CALL LIGHT IN REACH.
--- NOTE | 2023-01-04 19:45 | NUR ---
ASSUMED PT CARE FROM JOE ROLON ON . A&OX4, ABLE TO FOLLOW DIRECTIONS AND MAKE NEEDS KNOW. UP AMBULATING IN ROOM INDEPENDENTLY WITH STEADY GAIT, POSTURE ERECT. DENIES ANY SOB OR CHEST PAIN/PRESSURE AT THIS TIME. HR IS SR IN THE 90'S. O2 IS > 92% ON RA. DENIES NEEDS AT THIS TIME. CALL LIGHT IN REACH. BED ALARM ON.
[2023-01-05 01:23] VITALS: BP 94/63
[2023-01-05 03:53] VITALS: BP 99/66
[2023-01-05 04:26] LABS: Hemoglobin 12.7 g/dL (11.5-16.0); Mean Corpuscular HGB 27.7 pg (26.0-34.0); Mean Corpuscular HGB Conc 33.4 g/dL (31.5-36.5); Mean Corpuscular Volume 83 fL (80-100); Mean Platelet Volume 10.7 fL (9.1-12.4); Platelet Count 212 K/mm3 (150-400); RDW Coefficient Variation 13.9 % (11.7-14.2); RDW Standard Deviation 42.3 fL (35.1-46.3); Red Blood Cell Count 4.58 M/mm3 (3.80-5.20)
[2023-01-05 04:42] LABS: International Normalized Ratio 2.53; Prothrombin Time Results 25.2 Sec (9.7-11.5)
[2023-01-05 04:44] LABS: Albumin, Blood 3.1 g/dL (3.4-5.0); Albumin/Globulin Ratio 1.1 (0.8-1.8); Bilirubin, Total 0.6 mg/dL (0.1-1.0); Bun/Creatinine Ratio 22.7 (12.0-20.0); Calcium, Blood 8.1 mg/dL (8.5-10.1); Creatinine, Blood 0.66 mg/dL (0.40-1.00); Globulin, Blood 2.8 g/dL (2.2-4.0); Potassium, Blood 3.5 mmol/L (3.5-5.5); Total Protein, Blood 5.9 g/dL (6.4-8.2)
--- NOTE | 2023-01-05 07:30 | NUR ---
SHIFT SUMMARY: NO ACUTE CHANGES NOTED DURING THIS SHIFT. HR REMAINS IN SR. DENIES ANY CHEST PAIN/PRESSURE. VITAL SIGNS REMAIN STABLE. PT SLEEPING INTERMITTENTLY THROUGHOUT THE NIGHT.
[2023-01-05 07:38] VITALS: BP 104/66
[2023-01-05 09:58] VITALS: BP 115/75
[2023-01-05 11:17] VITALS: BP 111/74
[2023-01-05] MEDS ORDERED: FURO40 PO (12:24)
[2023-01-05] MEDS ORDERED: METO25ER PO (12:27)
[2023-01-05] MEDS ORDERED: ENTRESTO 24 MG1 EACH PO (12:31)
[2023-01-05] MEDS ORDERED: SPIR25 PO (12:33)
== END 2023-01-05 13:28 | disposition home or self-care (01) | DRG 308 ==
LOC: ER 20:51 → PCU 20:52
PROVIDERS: Emergency Medicine; Family Medicine; Internal Medicine; ADMIT Internal Medicine
PROC: 5A2204Z Restoration of Cardiac Rhythm, Single (ICD-10-PCS; principal; 2023-01-03)
DX: I48.0 Paroxysmal atrial fibrillation (principal); I50.23 Acute on chronic systolic (congestive) heart failure; I11.0 Hypertensive heart disease with heart failure; E78.5 Hyperlipidemia, unspecified; I47.1 Supraventricular tachycardia; I25.5 Ischemic cardiomyopathy; E03.9 Hypothyroidism, unspecified; F32.A Depression, unspecified; F41.1 Generalized anxiety disorder; G47.33 Obstructive sleep apnea (adult) (pediatric); H81.09 Meniere's disease, unspecified ear; I07.1 Rheumatic tricuspid insufficiency; K21.9 Gastro-esophageal reflux disease without esophagitis; I25.10 Atherosclerotic heart disease of native coronary artery without angina pectoris; Z95.4 Presence of other heart-valve replacement; Z98.41 Cataract extraction status, right eye; Z98.42 Cataract extraction status, left eye; Z86.73 Personal history of transient ischemic attack (TIA), and cerebral infarction without residual deficits; Z79.01 Long term (current) use of anticoagulants; Z90.89 Acquired absence of other organs; Z88.2 Allergy status to sulfonamides; Z88.1 Allergy status to other antibiotic agents; Z79.890 Hormone replacement therapy; Z79.899 Other long term (current) drug therapy; Z79.82 Long term (current) use of aspirin
CPT/HCPCS: 36415; 71046; 80053; 83690; 83735; 83880; 84484; 85025; 85027; 85610; 92960; 93005; 93010; 96365; 96366; 96375; 99152; 99285-25; A9270; C8929; G0378; J2704; J7030; Q9957

== ENCOUNTER 2023-06-24 15:31 | Observation (INO) | payer OTHER ==
[~2023-06-24] VITALS: Ht 154.9 cm; Wt 59.0 kg
[~2023-06-24 15:31] MED LIST changes: +ENTRESTO 24 MG1 EACH PO; +FURO40 PO; +SPIR25 PO
[2023-06-24 16:13] LABS: BASOPHILS ABSOLUTE AUTO 0.07 K/mm3 (0.00-0.23); BASOPHILS PERCENT AUTO 1 % (0-2); EOSINOPHILS ABSOLUTE AUTO 0.26 K/mm3 (0.00-0.68); EOSINOPHILS PERCENT AUTO 4 % (0-6); Hematocrit 44.3 % (33.0-51.0); Hemoglobin 14.5 g/dL (11.5-16.0); IMMATURE GRAN ABSOLUTE AUTO 0.02 K/mm3 (0.00-0.10); IMMATURE GRAN PERCENT AUTO 0 % (0-1); LYMPHOCYTES ABSOLUTE AUTO 1.11 K/mm3 (0.84-5.20); LYMPHOCYTES PERCENT AUTO 18 % (21-46); MONOCYTES ABSOLUTE AUTO 0.69 K/mm3 (0.16-1.47); MONOCYTES PERCENT AUTO 11 % (4-13); Mean Corpuscular HGB 28.3 pg (26.0-34.0); Mean Corpuscular HGB Conc 32.7 g/dL (31.5-36.5); Mean Corpuscular Volume 87 fL (80-100); Mean Platelet Volume 9.9 fL (9.1-12.4); NEUTROPHILS ABSOLUTE AUTO 4.14 K/mm3 (1.96-9.15); NEUTROPHILS PERCENT AUTO 66 % (41-73); Platelet Count 295 K/mm3 (150-400); RDW Coefficient Variation 14.5 % (11.7-14.2); RDW Standard Deviation 45.4 fL (35.1-46.3); Red Blood Cell Count 5.12 M/mm3 (3.80-5.20); White Blood Cell Count 6.29 K/mm3 (4.00-11.30)
[2023-06-24 16:40] LABS: Albumin, Blood 3.6 g/dL (3.4-5.0); Bilirubin, Total 0.2 mg/dL (0.1-1.0); Bun/Creatinine Ratio 17.3 (12.0-20.0); Calcium, Blood 8.8 mg/dL (8.5-10.1); Creatinine, Blood 1.04 mg/dL (0.40-1.00); Globulin, Blood 3.5 g/dL (2.2-4.0); Potassium, Blood 3.4 mmol/L (3.5-5.5); Total Protein, Blood 7.1 g/dL (6.4-8.2)
[2023-06-24 17:05] LABS: International Normalized Ratio 3.25; Prothrombin Time Results 31.9 Sec (9.7-11.5)
[2023-06-24] MEDS ORDERED: JARDIANCE10 MG (21:41)
[2023-06-24] MEDS ORDERED: HYDCHL25 (21:42)
[2023-06-25 06:11] VITALS: BP 133/72
[2023-06-25 06:47] LABS: Bun/Creatinine Ratio 19.9 (12.0-20.0); Calcium, Blood 8.1 mg/dL (8.5-10.1); Creatinine, Blood 0.76 mg/dL (0.40-1.00); Potassium, Blood 3.8 mmol/L (3.5-5.5)
[2023-06-25 07:21] VITALS: BP 121/71
[2023-06-25 09:46] LABS: International Normalized Ratio 2.65; Prothrombin Time Results 26.3 Sec (9.7-11.5)
--- NOTE | 2023-06-25 11:46 | NUR ---
DISCHARGE SUMMARY PT ALERT, ORIENTED X4; CALM AND COOPERTIVE WITH CARE. PT RESTING IN BED, UP IND TO BATHROOM. PT DENIES PAIN, CHEST PAIN/PRESSURE, SOB, NAUSEA, DIZZINESS AND NUMB/TINGLING. TELE SINUS KYM TO SINUS 58-64 BP STABLE. SPO2 >90% ON RA, BREATHING EVEN AND UNALBORED. ABD SOFT NONTENDER, +BT T/O. OTHER VSS. NO OTHER ACUTE CHANGES NOTEDPT AND SPOUSE EDUCATED ON DISCHARGE INSTURCTIONS, FOLLOW UP APPOINTMENTS AND MEDICATIONS. PT LEFT VIA WHEELCHAIR AT APPROX 1128.
== END 2023-06-25 10:56 | disposition home or self-care (01) ==
LOC: ER 15:31 → ERHOLD 15:32 → PCU 15:32
PROVIDERS: Emergency Medicine; Family Medicine; ADMIT Internal Medicine
DX: R07.89 Other chest pain (principal); Z72.0 Tobacco use; Z86.73 Personal history of transient ischemic attack (TIA), and cerebral infarction without residual deficits; I11.0 Hypertensive heart disease with heart failure; I50.22 Chronic systolic (congestive) heart failure; E78.5 Hyperlipidemia, unspecified; F41.9 Anxiety disorder, unspecified; E03.9 Hypothyroidism, unspecified; N17.9 Acute kidney failure, unspecified; E87.6 Hypokalemia
CPT/HCPCS: 36415; 71046; 80048; 80053; 84484; 85025; 85610; 93005; 93010; 99285-25; A9270; G0378

== ENCOUNTER → 2023-10-27 | Outpatient (CLI) | payer OTHER ==
[~2023-10-27] MED LIST changes: +HYDCHL25; +JARDIANCE10 MG
[2023-10-27 13:55] LABS: Source, Urine Clean Catch
[2023-10-27 14:39] LABS: Appearance, Urine Clear (Clear); Blood, Urine 3+ (Neg); Color, Urine Amber (P-Yellow); Glucose Qualitative, Urine Neg (Neg); Ketones, Urine Neg (Neg); Leukocyte Esterase, Urine 3+ (Neg); Nitrite, Urine Pos (Neg); Protein, Urine Neg (Neg); Urobilinogen, Urine 2+ (Normal)
[2023-10-27 14:54] LABS: Bilirubin, Urine 2+ (Neg)
[2023-10-27 14:57] LABS: White Blood Cells, Urine 25-50 /hpf (0-5)
[2023-10-27 14:58] LABS: Bacteria Many /hpf; Squamous Epithelial Cells Many /hpf (Few); Transitional Epithelial Cells Rare /hpf (0-Rare)
== END | disposition home or self-care (01) ==
LOC: LAB 13:48 → LAB SHORT 13:48
PROVIDERS: Nurse Practitioner Family
DX: R39.9 Unspecified symptoms and signs involving the genitourinary system (principal)
CPT/HCPCS: 81001; 87086

== ENCOUNTER → 2024-02-17 | Outpatient (CLI) | payer OTHER ==
[2024-02-18 10:52] LABS: Source, Urine Voided
[2024-02-18 11:37] LABS: Appearance, Urine Clear (Clear); Blood, Urine 4+ (Neg); Color, Urine Amber (P-Yellow); Glucose Qualitative, Urine Neg (Neg); Ketones, Urine Neg (Neg); Leukocyte Esterase, Urine 3+ (Neg); Nitrite, Urine Pos (Neg); Protein, Urine 1+ (Neg); Urobilinogen, Urine 2+ (Normal)
[2024-02-18 11:46] LABS: Bilirubin, Urine 2+ (Neg)
[2024-02-18 11:48] LABS: White Blood Cells, Urine 25-50 /hpf (0-5)
[2024-02-18 11:49] LABS: Bacteria Many /hpf; Mucus Light (0-Heavy); Squamous Epithelial Cells Rare /hpf (Few)
== END ==
LOC: LAB 10:44 → LAB SHORT 10:44
PROVIDERS: Nurse Practitioner Family
DX: R39.9 Unspecified symptoms and signs involving the genitourinary system (principal)
CPT/HCPCS: 81001; 87086

== ENCOUNTER 2024-07-28 21:37 | Emergency (ER) | payer OTHER ==
[~2024-07-28] VITALS: Ht 157.5 cm; Wt 59.0 kg
[2024-07-28] MEDS ORDERED: METO50ER PO (21:52)
[2024-07-28] MEDS ORDERED: PRAV20 PO (21:52)
[2024-07-28] MEDS ORDERED: Atarax10 MG PO (21:53)
[2024-07-28 22:11] LABS: BASOPHILS ABSOLUTE AUTO 0.04 K/mm3 (0.00-0.23); BASOPHILS PERCENT AUTO 1 % (0-2); EOSINOPHILS ABSOLUTE AUTO 0.15 K/mm3 (0.00-0.68); EOSINOPHILS PERCENT AUTO 2 % (0-6); Hemoglobin 13.9 g/dL (11.5-16.0); IMMATURE GRAN ABSOLUTE AUTO 0.03 K/mm3 (0.00-0.10); IMMATURE GRAN PERCENT AUTO 1 % (0-1); LYMPHOCYTES ABSOLUTE AUTO 1.58 K/mm3 (0.84-5.20); LYMPHOCYTES PERCENT AUTO 25 % (21-46); MONOCYTES ABSOLUTE AUTO 0.69 K/mm3 (0.16-1.47); MONOCYTES PERCENT AUTO 11 % (4-13); Mean Corpuscular HGB 29.6 pg (26.0-34.0); Mean Corpuscular HGB Conc 33.9 g/dL (31.5-36.5); Mean Corpuscular Volume 87 fL (80-100); Mean Platelet Volume 9.4 fL (9.1-12.4); NEUTROPHILS ABSOLUTE AUTO 3.95 K/mm3 (1.96-9.15); NEUTROPHILS PERCENT AUTO 61 % (41-73); Platelet Count 236 K/mm3 (150-400); RDW Coefficient Variation 13.2 % (11.7-14.2); RDW Standard Deviation 42.3 fL (35.1-46.3); Red Blood Cell Count 4.69 M/mm3 (3.80-5.20); White Blood Cell Count 6.44 K/mm3 (4.00-11.30)
[2024-07-28 22:31] LABS: Albumin, Blood 3.8 g/dL (3.4-5.0); Albumin/Globulin Ratio 1.2 (0.8-1.8); Bilirubin, Total 0.2 mg/dL (0.1-1.0); Bun/Creatinine Ratio 19.5 (12.0-20.0); Calcium, Blood 9.2 mg/dL (8.5-10.1); Creatinine, Blood 0.92 mg/dL (0.40-1.00); Globulin, Blood 3.3 g/dL (2.2-4.0); Potassium, Blood 3.8 mmol/L (3.5-5.5); Total Protein, Blood 7.1 g/dL (6.4-8.2)
[2024-07-29 02:29] LABS: Base Excess Venous 2.7 mmol/L; Bicarbonate Venous 25.8 mmol/L (24.0-30.0); PCO2 Venous 44.7 mmHg (38-42)
[2024-07-29 05:30] VITALS: BP 135/94
[2024-07-29] MEDS ORDERED: METO50ER PO (05:31)
== END 2024-07-29 06:20 | disposition home or self-care (01) ==
LOC: ER 21:37
PROVIDERS: Emergency Medicine
DX: R00.2 Palpitations (principal); E86.0 Dehydration; R06.02 Shortness of breath; Z95.3 Presence of xenogenic heart valve; Z88.2 Allergy status to sulfonamides; Z88.1 Allergy status to other antibiotic agents; Z79.01 Long term (current) use of anticoagulants; Z79.890 Hormone replacement therapy; Z79.899 Other long term (current) drug therapy; Z59.89 Other problems related to housing and economic circumstances
CPT/HCPCS: 80053; 82803; 84484; 85025; 93005; 93010; 99285-25

== ENCOUNTER 2024-10-05 10:08 | Emergency (ER) | payer OTHER ==
[~2024-10-05] VITALS: Ht 152.4 cm; Wt 59.0 kg
[~2024-10-05 10:08] MED LIST changes: +Atarax10 MG PO; +METO50ER PO; +PRAV20 PO
[2024-10-05] MEDS ORDERED: Toprol Xl50 MG PO (10:21)
[2024-10-05 11:05] LABS: BASOPHILS ABSOLUTE AUTO 0.07 K/mm3 (0.00-0.23); BASOPHILS PERCENT AUTO 1 % (0-2); EOSINOPHILS ABSOLUTE AUTO 0.25 K/mm3 (0.00-0.68); EOSINOPHILS PERCENT AUTO 4 % (0-6); Hematocrit 39.3 % (33.0-51.0); Hemoglobin 13.1 g/dL (11.5-16.0); IMMATURE GRAN ABSOLUTE AUTO 0.04 K/mm3 (0.00-0.10); IMMATURE GRAN PERCENT AUTO 1 % (0-1); LYMPHOCYTES ABSOLUTE AUTO 1.18 K/mm3 (0.84-5.20); LYMPHOCYTES PERCENT AUTO 18 % (21-46); MONOCYTES ABSOLUTE AUTO 0.66 K/mm3 (0.16-1.47); MONOCYTES PERCENT AUTO 10 % (4-13); Mean Corpuscular HGB 29.4 pg (26.0-34.0); Mean Corpuscular HGB Conc 33.3 g/dL (31.5-36.5); Mean Corpuscular Volume 88 fL (80-100); Mean Platelet Volume 10.6 fL (9.1-12.4); NEUTROPHILS ABSOLUTE AUTO 4.42 K/mm3 (1.96-9.15); NEUTROPHILS PERCENT AUTO 67 % (41-73); Platelet Count 322 K/mm3 (150-400); RDW Coefficient Variation 12.6 % (11.7-14.2); RDW Standard Deviation 40.8 fL (35.1-46.3); Red Blood Cell Count 4.46 M/mm3 (3.80-5.20); White Blood Cell Count 6.62 K/mm3 (4.00-11.30)
[2024-10-05 11:30] LABS: Albumin, Blood 3.6 g/dL (3.4-5.0); Bilirubin, Total 0.4 mg/dL (0.1-1.0); Bun/Creatinine Ratio 18.3 (12.0-20.0); Calcium, Blood 8.7 mg/dL (8.5-10.1); Creatinine, Blood 0.77 mg/dL (0.40-1.00); Globulin, Blood 3.7 g/dL (2.2-4.0); Total Protein, Blood 7.3 g/dL (6.4-8.2)
[2024-10-05 12:07] LABS: Cholesterol 241 mg/dL (50-200); Triglycerides 119 mg/dL (30-160)
[2024-10-05] MEDS ORDERED: FOSAMAX70 MG PO (12:56)
[2024-10-05] MEDS ORDERED: ENTRESTO 49 MG1 EAC7 PO (12:56)
[2024-10-05] MEDS ORDERED: SPIRONOLACTONE25 MG PO (12:56)
[2024-10-05] MEDS ORDERED: JANTOVEN4 M2 PO (12:57)
[2024-10-05] MEDS ORDERED: Metoprolol Succinate 50 MG TABCR PO ONE (13:20)
[2024-10-05] MEDS ORDERED: Digoxin 0.25 MG/ML 2ML Amp IV ONE (15:40)
[2024-10-05 17:15] VITALS: BP 118/69
[2024-10-05] MEDS ORDERED: METO50ER PO (17:21)
[2024-10-05] MEDS ORDERED: DIGOXIN62.5 MCG PO (17:21)
== END 2024-10-05 18:52 | disposition home or self-care (01) ==
LOC: ER 10:08
PROVIDERS: Physician Assistant
DX: I48.91 Unspecified atrial fibrillation (principal); I11.0 Hypertensive heart disease with heart failure; I50.20 Unspecified systolic (congestive) heart failure; I25.10 Atherosclerotic heart disease of native coronary artery without angina pectoris; E78.5 Hyperlipidemia, unspecified; E03.9 Hypothyroidism, unspecified; G47.33 Obstructive sleep apnea (adult) (pediatric); Z88.2 Allergy status to sulfonamides; Z88.1 Allergy status to other antibiotic agents; Z79.01 Long term (current) use of anticoagulants; Z79.899 Other long term (current) drug therapy
CPT/HCPCS: 71045; 80053; 82465; 83880; 84443; 84478; 85025; 93005; 93010; 96374; 99284-25; A9270; J1160